=== PATIENT | female | born 1945 | race Caucasian/White ===

== ENCOUNTER 2016-07-28 12:15 | Day surgery (SDC) | payer MEDICARE, OTHER ==
[~2016-07-28] VITALS: Ht 165.1 cm; Wt 56.7 kg
[~2016-07-28 12:15] MED LIST: 0.9% Sodium Chloride 1,000 ML IV SCH; AMMO385C5 TP; ASPI-867 PO; CHOL200025 PO; EST42.5C PV; ESTR10TA VG; MULT-1065 PO; OMEG300C3 PO; Sodium Chloride LOK Flush 10 mL Syringe IV PRN; fentaNYL-PF 50 mCg/mL 2 mL Inj IVPUSH PRN
[2016-07-28 13:14] VITALS: BP 116/82; PULSE 74; RESP 14; O2SAT 99
[2016-07-28 14:33] VITALS: BP 110/75; PULSE 72; RESP 16; O2SAT 98
[2016-07-28 14:43] VITALS: BP 115/79; PULSE 78; RESP 16; O2SAT 100
[2016-07-28 14:53] VITALS: BP 133/85; PULSE 71; RESP 16; O2SAT 98
--- NOTE | 2016-07-28 15:05 | ENDO ---
[address] [address] ENDOSCOPY PROCEDURE PATIENT: FRANCISCA BRAUN V : 1945 MR#: [id number] ADMIT: 07/28/2016 JOB ID: [id number] DATE: 07/28/2016 PRIMARY PROVIDER: Tom Hernandez DO PROCEDURE: Colonoscopy. INDICATIONS: A 70-year-old female with a personal history of adenomatous colon polyp. EQUIPMENT: PCF H 180 AL. SEDATION: 1. 3 mg Versed. 2. 75 mcg fentanyl. COMPLICATIONS: None identified. BOWEL PREPARATION: Fair, adequate examination. PROCEDURAL INFORMATION: After the risks and benefits were explained, written and verbal informed consent was obtained. The patient was brought into the endoscopy suite and placed into the left lateral decubitus position. Sedation was achieved as above. The sedation was achieved as above. A digital rectal examination accomplished. No significant pathology appreciated. The scope was introduced into the rectum and advanced under direct visualization to the cecum as identified by the appendiceal orifice and ileocecal valve. The scope was slowly withdrawn to carefully examine the mucosa for any defects or lesions. Retroflexed views were avoided in the rectum. Multiple direct views were made through the dentate line for exclusion of pathology. The colon was decompressed. Scope removed from the patient who tolerated the procedure well. FINDINGS: No significant polyps, mass lesions, or inflammatory features identified throughout. ENDOSCOPIC DIAGNOSIS: Visually unremarkable colonoscopy to cecum. RECOMMENDATIONS: Considering past history of adenomatous colon polyp, repeat colonoscopy in five years.
== END 2016-07-28 23:59 | disposition home or self-care (01) ==
LOC: END 12:15
PROVIDERS: ATTEND Internal Medicine Gastroenterology
DX: Z12.11 Encounter for screening for malignant neoplasm of colon (principal); Z86.010 Personal history of colon polyps; K59.00 Constipation, unspecified; K21.9 Gastro-esophageal reflux disease without esophagitis; M19.90 Unspecified osteoarthritis, unspecified site; I73.00 Raynaud's syndrome without gangrene; Z79.82 Long term (current) use of aspirin; Z79.890 Hormone replacement therapy
CPT/HCPCS: G0105; G0500; J2250; J3010; J7030